=== PATIENT | female | born 1935 | race Caucasian/White ===

== ENCOUNTER 2024-01-03 16:58 | Inpatient (IN) | payer OTHER ==
[2024-01-03 17:34] VITALS: BMI 45.5
[2024-01-03 19:30] LABS: BASO % 0.2 % (0-2.0); EOS % 0.2 % (0-4.5); HEMATOCRIT 34.6 % (32.4-45.2); HEMOGLOBIN 11.4 GM/dL (10.7-15.3); LYMPH % 4.5 % (8-40); MCH 29.1 pg (25.7-33.7); MCHC 32.8 g/dl (32.0-36.0); MEAN CELL VOLUME 88.6 fl (80-96); MEAN PLT VOLUME 9.4 fl (7.5-11.1); MONO % 9.3 % (3.8-10.2); NEUT % 85.8 % (42.8-82.8); PLATELET COUNT 115 10^3/uL (134-434); RDW 14.8 % (11.6-15.6); WHITE BLOOD COUNT 8.7 K/mm3 (4.0-10.0)
[2024-01-03 19:40] LABS: EPI CELLS 6 /uL (0-25.1); HYALINE CASTS 0 /uL (0-3.1); URINE APPEARANCE CLEAR; URINE BACTERIA 13 /uL (0-1359); URINE BILIRUBIN NEGATIVE (NEGATIVE); URINE COLOR YELLOW; URINE GLUCOSE (UA) 3+ (NEGATIVE); URINE KETONE NEGATIVE (NEGATIVE); URINE LEUK ESTERASE 1+ (NEGATIVE); URINE NITRITE NEGATIVE (NEGATIVE); URINE PROTEIN TRACE (NEGATIVE); URINE RBC 23 /uL (0-23.9); URINE UROBILINOGEN 0.2 mg/dL (0.2-1.0); URINE WBC 119 /uL (0-25.8)
[2024-01-03 19:48] LABS: POTASSIUM 4.8 mmol/L (3.5-5.1)
[2024-01-03 19:51] LABS: CALCIUM 8.6 mg/dL (8.5-10.1)
[2024-01-03 19:52] LABS: ALBUMIN 3.7 g/dl (3.4-5.0); BLOOD UREA NITROGEN 35.3 mg/dL (7-18)
[2024-01-03 19:56] LABS: BILIRUBIN,TOTAL 0.7 mg/dL (0.2-1)
[2024-01-03 19:57] LABS: TOT PROT 6.9 g/dl (6.4-8.2)
[2024-01-03] MEDS: SODIUM CHLORIDE FOR INHALATION 3 ML VIAL.NEB IH ONE (20:11)
[2024-01-03] MEDS: SODIUM CHLORIDE 0.9% 500 ML INFUS.BAG IV ONE (21:27)
[2024-01-03] MEDS ORDERED: LEVALBUTEROL HCL 0.63 MG/3 ML VIAL.NEB. IH ONE (21:31)
[2024-01-03] MEDS ORDERED: methylPREDNISolone NA SUCC 125 MG/2 ML VIAL ONE (21:32)
[2024-01-03 21:37] LABS: N-TERMINAL BNP 800.2 pg/ml (5-450)
[2024-01-03] MEDS: LEVALBUTEROL HCL 0.63 MG/3 ML VIAL.NEB. IH ONE (21:40)
[2024-01-03] MEDS: methylPREDNISolone NA SUCC 125 MG/2 ML VIAL IVPUSH ONE (21:40)
[2024-01-03] MEDS ORDERED: FUROSEMIDE 40 MG/4 ML INJECTABLE VIAL ONE (23:08)
[2024-01-03] MEDS: FUROSEMIDE 40 MG/4 ML INJECTABLE VIAL IVPUSH ONE (23:28)
[2024-01-03] MEDS ORDERED: GABAPENTIN 400 MG CAPSULE ONE (23:39)
[2024-01-03] MEDS ORDERED: ACETAMINOPHEN 325 MG TABLET (FP) ONE (23:39)
[2024-01-03] MEDS: GABAPENTIN 400 MG CAPSULE PO ONE (23:46)
[2024-01-03] MEDS: ACETAMINOPHEN 325 MG TABLET (FP) PO ONE (23:46)
[2024-01-04] MEDS ORDERED: INSULIN ASPART SLIDING SCALE (NOVOLOG) 1 VIAL SQ SCH ×2 (07:00)
[2024-01-04 07:05] LABS: HEMATOCRIT 34.7 % (32.4-45.2); HEMOGLOBIN 11.4 GM/dL (10.7-15.3); MCH 29.1 pg (25.7-33.7); MCHC 32.7 g/dl (32.0-36.0); MEAN CELL VOLUME 88.9 fl (80-96); MEAN PLT VOLUME 9.8 fl (7.5-11.1); PLATELET COUNT 120 10^3/uL (134-434); RDW 14.5 % (11.6-15.6); WHITE BLOOD COUNT 7.9 K/mm3 (4.0-10.0)
[2024-01-04 08:52] LABS: ALBUMIN 3.6 g/dl (3.4-5.0); ALK PHOS 76 U/L (45-117); ANION GAP 7 mmol/L (4-13); BILIRUBIN,TOTAL 0.6 mg/dL (0.2-1); BLOOD UREA NITROGEN 35.7 mg/dL (7-18); CALCIUM 9.1 mg/dL (8.5-10.1); CHLORIDE 93 mmol/L (98-107); CHOLESTEROL 133 mg/dL (50-200); CO2 30 mmol/L (21-32); CREATININE 0.9 mg/dL (0.55-1.3); GLUCOSE,RANDOM 156 mg/dL (74-106); HDL CHOLESTEROL 69 mg/dL (40-60); LDL CHOLESTEROL (ONLY SJRH) 57 mg/dL (5-100); PHOSPHOROUS 3.9 mg/dL (2.5-4.9); POTASSIUM 4.8 mmol/L (3.5-5.1); SGOT/AST 30 U/L (15-37); SGPT/ALT 22 U/L (13-61); SODIUM 131 mmol/L (136-145)
[2024-01-04] MEDS: APIXABAN 5 MG TABLET PO SCH (09:22)
[2024-01-04] MEDS: GABAPENTIN 400 MG CAPSULE PO SCH (09:22)
[2024-01-04] MEDS: FUROSEMIDE 40 MG/4 ML INJECTABLE VIAL IVPUSH SCH (09:22)
[2024-01-04] MEDS: INSULIN ASPART SLIDING SCALE (NOVOLOG) 1 VIAL SQ SCH (09:23)
[2024-01-04 10:43] LABS: ANISOCYTOSIS 2+; MACROCYTOSIS 0
[2024-01-04] MEDS ORDERED: LEVALBUTEROL HCL 0.63 MG/3 ML VIAL.NEB. IH PRN (14:05)
[2024-01-04] MEDS: methylPREDNISolone NA SUCC 40 MG/1 ML VIAL IVPUSH SCH (17:03)
[2024-01-04] MEDS: BUDESONIDE/FORMETEROL FUMARATE 80/4.5 mcg INHALER IH SCH (22:08)
[2024-01-04] MEDS: ATORVASTATIN CA 20 MG TABLET (FP) PO SCH (22:08)
[2024-01-05 09:06] LABS: HEMOGLOBIN 11.3 GM/dL (10.7-15.3); MCHC 32.4 g/dl (32.0-36.0); MEAN CELL VOLUME 89.4 fl (80-96); MEAN PLT VOLUME 9.8 fl (7.5-11.1); PLATELET COUNT 135 10^3/uL (134-434); RBC 3.91 M/mm3 (3.60-5.2); RDW 14.7 % (11.6-15.6); WHITE BLOOD COUNT 10.8 K/mm3 (4.0-10.0)
[2024-01-05 09:28] LABS: POTASSIUM 4.6 mmol/L (3.5-5.1)
[2024-01-05 09:30] LABS: CALCIUM 9.3 mg/dL (8.5-10.1)
[2024-01-05 09:31] LABS: ALBUMIN 3.2 g/dl (3.4-5.0); BLOOD UREA NITROGEN 54.8 mg/dL (7-18)
[2024-01-05 09:34] LABS: CREATININE 1.1 mg/dL (0.55-1.3)
[2024-01-05 09:35] LABS: BILIRUBIN,TOTAL 0.5 mg/dL (0.2-1); TOT PROT 6.8 g/dl (6.4-8.2)
[2024-01-05] MEDS: LOSARTAN POTASSIUM 50 MG TABLET PO SCH (10:35)
[2024-01-05] MEDS: NEBIVOLOL 5 MG TABLET (FP) PO SCH (10:35)
[2024-01-05] MEDS: EMPAGLIFLOZIN (JARDIANCE) 10 MG TABLET PO SCH (10:36)
[2024-01-05] MEDS ORDERED: ACETAMINOPHEN 1000 MG/100 ML BAG IVPB PRN (21:34)
[2024-01-06 09:10] LABS: HEMATOCRIT 36.6 % (32.4-45.2); HEMOGLOBIN 11.8 GM/dL (10.7-15.3); MCHC 32.3 g/dl (32.0-36.0); MEAN CELL VOLUME 89.8 fl (80-96); MEAN PLT VOLUME 9.8 fl (7.5-11.1); PLATELET COUNT 148 10^3/uL (134-434); RBC 4.07 M/mm3 (3.60-5.2); RDW 14.6 % (11.6-15.6); WHITE BLOOD COUNT 10.4 K/mm3 (4.0-10.0)
[2024-01-06 09:35] LABS: POTASSIUM 4.7 mmol/L (3.5-5.1)
[2024-01-06 09:42] LABS: ALBUMIN 3.3 g/dl (3.4-5.0); CALCIUM 8.9 mg/dL (8.5-10.1)
[2024-01-06 09:43] LABS: BLOOD UREA NITROGEN 61.6 mg/dL (7-18); CREATININE 1.1 mg/dL (0.55-1.3); MAGNESIUM 2.5 mg/dL (1.8-2.4); PHOSPHOROUS 3.4 mg/dL (2.5-4.9)
[2024-01-06 09:44] LABS: BILIRUBIN,TOTAL 0.5 mg/dL (0.2-1)
[2024-01-06 09:45] LABS: TOT PROT 6.7 g/dl (6.4-8.2)
[2024-01-06 10:11] LABS: ANISOCYTOSIS 0; MACROCYTOSIS 0
[2024-01-06] MEDS: GABAPENTIN 400 MG CAPSULE PO SCH (15:05)
[2024-01-07 08:46] LABS: HEMATOCRIT 36.6 % (32.4-45.2); HEMOGLOBIN 11.9 GM/dL (10.7-15.3); MCH 29.1 pg (25.7-33.7); MCHC 32.4 g/dl (32.0-36.0); MEAN CELL VOLUME 89.8 fl (80-96); MEAN PLT VOLUME 9.3 fl (7.5-11.1); PLATELET COUNT 161 10^3/uL (134-434); RBC 4.08 M/mm3 (3.60-5.2); RDW 14.6 % (11.6-15.6); WHITE BLOOD COUNT 10.3 K/mm3 (4.0-10.0)
[2024-01-07 09:07] LABS: POTASSIUM 4.4 mmol/L (3.5-5.1)
[2024-01-07 09:08] LABS: CALCIUM 9.3 mg/dL (8.5-10.1)
[2024-01-07 09:09] LABS: ALBUMIN 3.1 g/dl (3.4-5.0); BLOOD UREA NITROGEN 64.2 mg/dL (7-18)
[2024-01-07 09:12] LABS: CREATININE 1.1 mg/dL (0.55-1.3)
[2024-01-07 09:14] LABS: BILIRUBIN,TOTAL 0.5 mg/dL (0.2-1); TOT PROT 6.5 g/dl (6.4-8.2)
[2024-01-07] MEDS: methylPREDNISolone NA SUCC 40 MG/1 ML VIAL IVPUSH SCH (13:32)
[2024-01-07] MEDS: ALBUTEROL SO4 2.5/IPRATROPIUM 0.5 INH SOL 3 ML VIAL.NEB. NEB SCH (15:30)
[2024-01-08 07:45] LABS: HEMATOCRIT 35.7 % (32.4-45.2); MCH 29.8 pg (25.7-33.7); MCHC 33.6 g/dl (32.0-36.0); MEAN CELL VOLUME 88.7 fl (80-96); MEAN PLT VOLUME 9.5 fl (7.5-11.1); PLATELET COUNT 188 10^3/uL (134-434); RBC 4.02 M/mm3 (3.60-5.2); RDW 14.7 % (11.6-15.6)
[2024-01-08 08:01] LABS: POTASSIUM 4.4 mmol/L (3.5-5.1)
[2024-01-08 08:10] LABS: CALCIUM 8.8 mg/dL (8.5-10.1)
[2024-01-08 08:11] LABS: ALBUMIN 3.2 g/dl (3.4-5.0); BLOOD UREA NITROGEN 68.3 mg/dL (7-18)
[2024-01-08 08:14] LABS: CREATININE 1.1 mg/dL (0.55-1.3)
[2024-01-08 08:16] LABS: BILIRUBIN,TOTAL 0.6 mg/dL (0.2-1); TOT PROT 6.5 g/dl (6.4-8.2)
[2024-01-08] MEDS: LEVALBUTEROL HCL 0.63 MG/3 ML VIAL.NEB. IH SCH (10:15)
[2024-01-08 11:21] LABS: ANISOCYTOSIS 0; HELMET CELLS 0; HOWELL-JOLLY BODIES 0; MACROCYTOSIS 0; OVALOCYTE 0; ROULEAU 0; SICKELED CELLS 0; TARGET CELLS 0; TEAR DROP CELLS 0; TOXIC GRANULATION 0
[2024-01-08] MEDS ORDERED: ALBUTEROL SO4 2.5/IPRATROPIUM 0.5 INH SOL 3 ML VIAL.NEB. NEB PRN (11:26)
[2024-01-08] MEDS: ACETYLCYSTEINE 20% 200MG/ML 4 ML VIAL *FOR ORAL / INH USE ONLY NEB SCH (11:30)
[2024-01-08] MEDS: ALBUTEROL SO4 0.083% IH SOL 2.5 MG/3 ML VIAL.NEB. NEB SCH (11:30)
[2024-01-09] MEDS: POLYETHYLENE GLYCOL (HEALTHYLAX) 3350 17 GM PACKET PO ONE (10:11)
[2024-01-10] MEDS: methylPREDNISolone NA SUCC 40 MG/1 ML VIAL IVPUSH SCH (10:19)
[2024-01-10] MEDS ORDERED: ALBUTEROL SO4 0.083% IH SOL 2.5 MG/3 ML VIAL.NEB. NEB PRN (11:51)
[2024-01-10] MEDS ORDERED: SODIUM CHLORIDE NASAL SPRAY 44 ML BOTTLE NS PRN (11:53)
[2024-01-10 12:18] LABS: HEMOGLOBIN 12.9 GM/dL (10.7-15.3); MCH 28.9 pg (25.7-33.7); MEAN CELL VOLUME 87.4 fl (80-96); MEAN PLT VOLUME 9.6 fl (7.5-11.1); PLATELET COUNT 213 10^3/uL (134-434); RBC 4.47 M/mm3 (3.60-5.2); RDW 14.8 % (11.6-15.6); WHITE BLOOD COUNT 18.3 K/mm3 (4.0-10.0)
[2024-01-10 12:41] LABS: POTASSIUM 4.5 mmol/L (3.5-5.1)
[2024-01-10 12:46] LABS: CALCIUM 9.7 mg/dL (8.5-10.1)
[2024-01-10 12:47] LABS: BLOOD UREA NITROGEN 64.6 mg/dL (7-18)
[2024-01-10] MEDS: ALBUTEROL SO4 2.5/IPRATROPIUM 0.5 INH SOL 3 ML VIAL.NEB. NEB SCH (12:50)
[2024-01-10 12:51] LABS: CREATININE 1.3 mg/dL (0.55-1.3)
[2024-01-10] MEDS: PRENATAL VITAMINS W/ FOLIC ACID TABLET (FP) PO SCH (15:15)
[2024-01-11 08:31] LABS: HEMATOCRIT 35.8 % (32.4-45.2); MCH 29.4 pg (25.7-33.7); MCHC 33.7 g/dl (32.0-36.0); MEAN CELL VOLUME 87.2 fl (80-96); MEAN PLT VOLUME 9.9 fl (7.5-11.1); PLATELET COUNT 169 10^3/uL (134-434); RDW 14.3 % (11.6-15.6); WHITE BLOOD COUNT 14.6 K/mm3 (4.0-10.0)
[2024-01-11 08:48] LABS: POTASSIUM 4.4 mmol/L (3.5-5.1)
[2024-01-11 08:50] LABS: CALCIUM 9.6 mg/dL (8.5-10.1)
[2024-01-11 08:51] LABS: BLOOD UREA NITROGEN 72.3 mg/dL (7-18)
[2024-01-11 08:54] LABS: CREATININE 1.2 mg/dL (0.55-1.3)
[2024-01-11] MEDS ORDERED: REGADENOSON 0.4 MG/5 ML PRE-FILLED SYRINGE IVPUSH ONE (10:47)
[2024-01-11] MEDS: REGADENOSON 0.4 MG/5 ML PRE-FILLED SYRINGE IVPUSH ONE (11:48)
[2024-01-12 08:21] LABS: POTASSIUM 4.1 mmol/L (3.5-5.1)
[2024-01-12 08:22] LABS: HEMATOCRIT 36.6 % (32.4-45.2); HEMOGLOBIN 12.2 GM/dL (10.7-15.3); MCHC 33.3 g/dl (32.0-36.0); MEAN CELL VOLUME 87.2 fl (80-96); MEAN PLT VOLUME 9.9 fl (7.5-11.1); PLATELET COUNT 156 10^3/uL (134-434); RBC 4.19 M/mm3 (3.60-5.2); RDW 14.8 % (11.6-15.6); WHITE BLOOD COUNT 17.7 K/mm3 (4.0-10.0)
[2024-01-12 08:26] LABS: ALBUMIN 2.9 g/dl (3.4-5.0); CALCIUM 8.9 mg/dL (8.5-10.1)
[2024-01-12 08:27] LABS: BLOOD UREA NITROGEN 76.7 mg/dL (7-18)
[2024-01-12 08:29] LABS: CREATININE 1.4 mg/dL (0.55-1.3)
[2024-01-12 08:31] LABS: BILIRUBIN,TOTAL 0.7 mg/dL (0.2-1); TOT PROT 5.9 g/dl (6.4-8.2)
[2024-01-12] MEDS: GABAPENTIN 100 MG CAPSULE PO SCH (21:10)
[2024-01-12] MEDS: ACETAMINOPHEN 325 MG TABLET (FP) PO PRN (22:38)
[2024-01-13 06:56] LABS: HEMATOCRIT 33.9 % (32.4-45.2); HEMOGLOBIN 11.3 GM/dL (10.7-15.3); MCH 29.3 pg (25.7-33.7); MCHC 33.5 g/dl (32.0-36.0); MEAN CELL VOLUME 87.4 fl (80-96); PLATELET COUNT 150 10^3/uL (134-434); RBC 3.87 M/mm3 (3.60-5.2); RDW 14.1 % (11.6-15.6); WHITE BLOOD COUNT 16.2 K/mm3 (4.0-10.0)
[2024-01-13 07:04] LABS: POTASSIUM 3.9 mmol/L (3.5-5.1)
[2024-01-13 07:16] LABS: CALCIUM 8.2 mg/dL (8.5-10.1)
[2024-01-13 07:17] LABS: ALBUMIN 2.6 g/dl (3.4-5.0); BLOOD UREA NITROGEN 96.8 mg/dL (7-18); TOT PROT 5.2 g/dl (6.4-8.2)
[2024-01-13 07:20] LABS: BILIRUBIN,TOTAL 0.7 mg/dL (0.2-1); CREATININE 2.1 mg/dL (0.55-1.3)
[2024-01-13] MEDS: LOSARTAN POTASSIUM 50 MG TABLET PO SCH (10:09)
[2024-01-13 10:27] LABS: ARTERIAL BLD GAS O2 SATURATION 93.9 % (95-98); ARTERIAL BLOOD GAS BASE EXCESS 3.9 mmol/L (-2-2); ARTERIAL BLOOD GAS PO2 72.2 mmHg (80-100); ARTERIAL BLOOD GAS pH 7.374 (7.350-7.450)
[2024-01-13 10:28] LABS: ALLENS TEST POSITIVE
[2024-01-13] MEDS: GABAPENTIN 300 MG CAPSULE PO SCH (21:17)
[2024-01-13] MEDS: APIXABAN 2.5 MG TABLET PO SCH (21:17)
[2024-01-14 08:50] LABS: HEMATOCRIT 37.1 % (32.4-45.2); HEMOGLOBIN 12.3 GM/dL (10.7-15.3); MCHC 33.2 g/dl (32.0-36.0); MEAN CELL VOLUME 87.4 fl (80-96); MEAN PLT VOLUME 10.2 fl (7.5-11.1); PLATELET COUNT 181 10^3/uL (134-434); RBC 4.24 M/mm3 (3.60-5.2); RDW 14.5 % (11.6-15.6); WHITE BLOOD COUNT 13.8 K/mm3 (4.0-10.0)
[2024-01-14 09:11] LABS: CALCIUM 9.2 mg/dL (8.5-10.1)
[2024-01-14 09:13] LABS: BLOOD UREA NITROGEN 91.3 mg/dL (7-18)
[2024-01-14 09:16] LABS: CREATININE 1.5 mg/dL (0.55-1.3)
[2024-01-14] MEDS: methylPREDNISolone NA SUCC 40 MG/1 ML VIAL IVPUSH SCH (09:36)
[2024-01-15 07:44] LABS: HEMATOCRIT 34.6 % (32.4-45.2); HEMOGLOBIN 11.1 GM/dL (10.7-15.3); MCH 28.3 pg (25.7-33.7); MEAN CELL VOLUME 88.2 fl (80-96); MEAN PLT VOLUME 10.6 fl (7.5-11.1); PLATELET COUNT 174 10^3/uL (134-434); RBC 3.92 M/mm3 (3.60-5.2); RDW 14.6 % (11.6-15.6); WHITE BLOOD COUNT 19.7 K/mm3 (4.0-10.0)
[2024-01-15 07:51] LABS: POTASSIUM 4.2 mmol/L (3.5-5.1)
[2024-01-15 07:53] LABS: ALBUMIN 2.8 g/dl (3.4-5.0); CALCIUM 9.1 mg/dL (8.5-10.1)
[2024-01-15 07:55] LABS: BLOOD UREA NITROGEN 84.2 mg/dL (7-18)
[2024-01-15 07:57] LABS: CREATININE 1.5 mg/dL (0.55-1.3)
[2024-01-15 07:59] LABS: BILIRUBIN,TOTAL 0.4 mg/dL (0.2-1); TOT PROT 5.7 g/dl (6.4-8.2)
[2024-01-16 06:51] LABS: HEMATOCRIT 33.8 % (32.4-45.2); MCH 28.4 pg (25.7-33.7); MCHC 32.4 g/dl (32.0-36.0); MEAN CELL VOLUME 87.6 fl (80-96); MEAN PLT VOLUME 10.1 fl (7.5-11.1); PLATELET COUNT 184 10^3/uL (134-434); RBC 3.86 M/mm3 (3.60-5.2); RDW 14.5 % (11.6-15.6); WHITE BLOOD COUNT 18.5 K/mm3 (4.0-10.0)
[2024-01-16 07:04] LABS: POTASSIUM 4.1 mmol/L (3.5-5.1)
[2024-01-16 07:07] LABS: ALBUMIN 2.8 g/dl (3.4-5.0); BLOOD UREA NITROGEN 73.6 mg/dL (7-18); CALCIUM 8.9 mg/dL (8.5-10.1); MAGNESIUM 2.1 mg/dL (1.8-2.4)
[2024-01-16 07:10] LABS: CREATININE 1.3 mg/dL (0.55-1.3); PHOSPHOROUS 3.6 mg/dL (2.5-4.9)
[2024-01-16 07:13] LABS: BILIRUBIN,TOTAL 0.4 mg/dL (0.2-1); TOT PROT 5.7 g/dl (6.4-8.2)
[2024-01-16 09:16] LABS: ANISOCYTOSIS 0; MACROCYTOSIS 0
[2024-01-16] MEDS ORDERED: FUROSEMIDE 20 MG TABLET (FP) PO SCH (10:00)
[2024-01-16 13:18] VITALS: BP 139/72; PULSE 64; RESP 16; TEMP 97.9
== END 2024-01-16 15:49 | disposition home or self-care (01) | DRG 291 ==
LOC: JER 16:58 → JERBED 22:39 → J4S 01-04 07:48
PROVIDERS: ADMIT Internal Medicine; ATTEND Internal Medicine
DX: I11.0 Hypertensive heart disease with heart failure (principal); I50.43 Acute on chronic combined systolic (congestive) and diastolic (congestive) heart failure; J96.01 Acute respiratory failure with hypoxia; E87.1 Hypo-osmolality and hyponatremia; I24.89 Other forms of acute ischemic heart disease; J44.1 Chronic obstructive pulmonary disease with (acute) exacerbation; Z68.42 Body mass index [BMI] 45.0-49.9, adult; N17.9 Acute kidney failure, unspecified; R41.0 Disorientation, unspecified; E66.9 Obesity, unspecified; E78.5 Hyperlipidemia, unspecified; E11.9 Type 2 diabetes mellitus without complications
CPT/HCPCS: 0241U-QW; 36415; 36600; 71045-TC-FY; 71250-TC; 76775-TC; 78452-TC; 80048; 80053; 80061; 81003; 82550; 82553; 82570; 82803; 82962; 83036; 83735; 83880; 84100; 84300; 84443; 84484; 85025; 85027; 87086; 93005; 93010; 93017; 93306-TC; 93970-TC; 94640; 94761; 97116-GP; 97161-GP; 99285-25; A9502; J2785